=== PATIENT | female | born 1995 | race African-American/Black ===

== ENCOUNTER 2019-02-15 22:33 | Emergency (ER) | payer MEDICAID, MEDICARE, OTHER ==
[~2019-02-15] VITALS: Ht 157.5 cm; Wt 90.0 kg
[~2019-02-15 22:33] MED LIST: TRAMADOL
[2019-02-16 04:07] VITALS: BP 142/69
[2019-02-16] MEDS ORDERED: AZITHROMYCIN 500 MG TABLET PO ONE (06:30)
[2019-02-16 06:48] LABS: CLARITY URINE TURBID (CLEAR); COLOR URINE YELLOW (YELLOW); KETONES URINE 1+ (NEGATIVE); LEUKOCYTE ESTERASE URINE NEGATIVE (NEGATIVE); NITRITE URINE NEGATIVE (NEGATIVE); OCCULT BLOOD URINE NEGATIVE (NEGATIVE); PROTEIN URINE TRACE (NEGATIVE); SPECIFIC GRAVITY URINE 1.028 (1.005-1.030)
== END 2019-02-16 07:05 | disposition left against medical advice (07) ==
LOC: ER 22:33
DX: T74.21XA Adult sexual abuse, confirmed, initial encounter (principal); F90.9 Attention-deficit hyperactivity disorder, unspecified type; F31.9 Bipolar disorder, unspecified; F17.210 Nicotine dependence, cigarettes, uncomplicated; Z59.0 Homelessness; Z90.89 Acquired absence of other organs; Z88.0 Allergy status to penicillin; Z88.8 Allergy status to other drugs, medicaments and biological substances
CPT/HCPCS: 81025; 99283